=== PATIENT | female | born 1990 | race Caucasian/White ===

== ENCOUNTER 2016-11-22 13:13 | Emergency (ER) | payer BC, OTHER ==
[~2016-11-22] VITALS: Ht 157.5 cm; Wt 98.9 kg
[~2016-11-22 13:13] MED LIST: NORGTAB36 PO; SERT-234 PO
[2016-11-22 13:22] VITALS: Ht 157.5 cm; Wt 98.9 kg
[2016-11-22] MEDS ORDERED: HYDR25CA PO (13:58)
--- NOTE | 2016-11-22 14:10 | EMERGENCY ROOM VISIT NOTE ---
ED Visit Note First contact with patient: 13:30 26-year-old female with a rash was fully evaluated by Jackson Valladares PA-C. Please see his note. I also independently evaluated the patient. Blood work was obtained. Strep test was negative.
[2016-11-22 15:56] VITALS: TEMP 37
[2016-11-22 16:02] LABS: BASO % 0.4 %; BASO ABS # 0.05 K/uL (0-0.2); COMPLETE YES; EOS % 2.9 %; HEMATOCRIT 41.5 % (37-47); IG% 0.4 %; LYMPH % 27.6 %; LYMPH ABS # 3.24 K/uL (1.2-3.4); MEAN CELL VOLUME 83.7 fL (80-100); MEAN CORPUSCULAR HEMOGLOBIN 27.8 pg (25-34); MEAN CORPUSCULAR HGB CONC 33.3 g/dl (32-36); MEAN PLATELET VOLUME 9.1 fL (7.4-10.4); MONO % 6.2 %; NEUT % 62.5 %; PLATELET COUNT 282 K/uL (130-400); RED BLOOD COUNT 4.96 M/uL (4.2-5.4); WHITE BLOOD COUNT 11.74 K/uL (4.8-10.8)
[2016-11-22 16:28] LABS: ALT/SGPT 19 U/L (12-78); AST/SGOT 13 U/L (15-37); BLOOD UREA NITROGEN 12 mg/dl (7-18); BUN/CREATININE RATIO 15.3 (10-20); CALCIUM 9.1 mg/dl (8.5-10.1); CARBON DIOXIDE 25 mmol/L (21-32); CHLORIDE 107 mmol/L (98-107); CREATININE 0.76 mg/dl (0.60-1.20); GLUCOSE 80 mg/dl (70-99); POTASSIUM 3.6 mmol/L (3.5-5.1); SODIUM 139 mmol/L (136-145)
[2016-11-22 16:30] LABS: ALKALINE PHOSPHATASE 86 U/L (45-117); C-REACTIVE PROTEIN 2.35 mg/dl (0-0.29)
[2016-11-22 16:48] VITALS: BP 105/92; PULSE 84; O2SAT 98
--- NOTE | 2016-11-22 16:51 | EMERGENCY ROOM VISIT NOTE ---
History First contact with patient: 13:30 Chief Complaint: SORETHROAT Stated Complaint: SORE THROAT, TROUBLE SWALLOWING, RASH History of Present Illness The patient is a 26 year old female who presents to the Emergency Room with complaints of sore throat, difficulty swallowing and a rash mostly on her upper arms, abdomen, pubic region and bilateral hands/feet. The patient reports that she developed a sore throat/irritation approximately 2 days ago. Shortly thereafter, her rash developed. The patient denies any significant pruritus. She has had no fevers or chills, runny nose, congestion or cough. The patient denies using any new topical products, including soaps, lotions or detergents. She denies any vaginal drainage, backache, headache, nausea or vomiting. She denies any known sick contacts. She denies any pain. Review of Systems HEENT: Denies dizziness, visual problems, hearing loss, tinnitus. Denies difficulty swallowing or oral lesions. PULMONARY: Denies cough, shortness of breath, sputum production or hemoptysis. CARDIOVASCULAR: Denies chest pain, palpitations, dyspnea on exertion, orthopnea or peripheral edema. GASTROINTESTINAL: Denies diarrhea, constipation, nausea, vomiting, or abdominal pain. GENITOURINARY: Denies dysuria, frequency, urgency or nocturia. NEUROLOGIC: Denies history of epilepsy, CVA, TIA or chronic headaches. MUSCULOSKELETAL: Denies history of joint tenderness/swelling. SKIN: Denies rashes or lesions. PSYCHIATRIC: History of mental illness. ENDOCRINE: Denies history of diabetes or thyroid disorders. Past Medical/Surgical History Medical Problems: (1) Anxiety (2) Depression (3) Syncope (4) Vasovagal syncope (5) Viral gastroenteritis Surgical Problems: (1) No pertinent past surgical history Family History Anxiety disorder Depression FH: bipolar disorder FH: cancer FH: diabetes mellitus FH: heart disease FH: hypertension FH: obesity FH: seizures FH: thyroid disease Social History Smoking Status: Never Smoker Drug Use: none Marital Status: single Housing Status: lives with family Occupation Status: employed Current/Historical Medications Scheduled Hydroxyzine Pamoate (Vistaril), 1 CAP PO HS Norgestimate-Ethinyl Estradiol (Ortho Tri-Cyclen), 1 TAB PO DAILY Sertraline (Zoloft), 200 MG PO DAILY Physical Exam Vital Signs Date Time Temp Pulse Resp B/P (MAP) Pulse Ox O2 Delivery O2 Flow Rate FiO2 8/1/17 15:56 37.0 88 18 143/84 97 Room Air 11/22/16 13:22 37.0 88 18 129/95 98 Room Air 11/22/16 13:22 98 Room Air Physical Exam CONSTITUTIONAL: Obese female, alert and oriented X 3 with positive affect. Patient does not appear in any acute distress, nor does she appear acutely or toxic. HEENT: Normocephalic, atraumatic. Pupils equal, round and reactive. No facial edema, rash, rhinorrhea, TM bulging, scleral icterus or conjunctival injection/pallor. OROPHARYNX: The patient has tonsillar hypertrophy, left worse than right with no uvular deviation. Negative trismus. There are no additional vesicular lesions or ulcerations on the buccal mucosa, tongue or gingiva. NECK: Full active range of motion without discomfort. No nuchal rigidity. LYMPHATICS: No cervical chain adenopathy appreciated. RESPIRATORY: Clear to auscultation bilaterally with no wheezing, crackles, rhonchi or stridor. CARDIOVASCULAR: Regular rate and rhythm with no murmurs, rubs or gallops. GASTROINTESTINAL: Bowel sounds present in all quadrants. Abdomen is soft and nontender to palpation. MUSCULOSKELETAL: Full range of motion of all joints without discomfort. Bogginess to palpation, erythema or increased warmth to palpation of the major joints. INTEGUMENTARY: Examination shows an erythematous and confluent rash on the posterior upper arms bilaterally, on bilateral palms and soles, inner thighs and abdomen. No vesicles, pustules, desquamation or bullae appreciated. The rash does kg with pressure. No additional petechiae or ecchymosis noted. NEUROLOGIC: No focal neurologic deficits noted. Medical Decision & Procedures Laboratory Results 11/22/16 15:35 Red Blood Count 4.96, Mean Corpuscular Volume 83.7, Mean Corpuscular Hemoglobin 27.8, Mean Corpuscular Hemoglobin Concent 33.3, Mean Platelet Volume 9.1, Neutrophils (%) (Auto) 62.5, Lymphocytes (%) (Auto) 27.6, Monocytes (%) (Auto) 6.2, Eosinophils (%) (Auto) 2.9, Basophils (%) (Auto) 0.4, Neutrophils # (Auto) 7.33, Lymphocytes # (Auto) 3.24, Monocytes # (Auto) 0.73, Eosinophils # (Auto) 0.34, Basophils # (Auto) 0.05 11/22/16 15:35 Test 11/22/16 15:35 White Blood Count 11.74 K/uL (4.8-10.8) Red Blood Count 4.96 M/uL (4.2-5.4) Hemoglobin 13.8 g/dL (12.0-16.0) Hematocrit 41.5 % (37-47) Mean Corpuscular Volume 83.7 fL (80-100) Mean Corpuscular Hemoglobin 27.8 pg (25-34) Mean Corpuscular Hemoglobin Concent 33.3 g/dl (32-36) Platelet Count 282 K/uL (130-400) Mean Platelet Volume 9.1 fL (7.4-10.4) Neutrophils (%) (Auto) 62.5 % Lymphocytes (%) (Auto) 27.6 % Monocytes (%) (Auto) 6.2 % Eosinophils (%) (Auto) 2.9 % Basophils (%) (Auto) 0.4 % Neutrophils # (Auto) 7.33 K/uL (1.4-6.5) Lymphocytes # (Auto) 3.24 K/uL (1.2-3.4) Monocytes # (Auto) 0.73 K/uL (0.11-0.59) Eosinophils # (Auto) 0.34 K/uL (0-0.5) Basophils # (Auto) 0.05 K/uL (0-0.2) RDW Standard Deviation 40.0 fL (36.4-46.3) RDW Coefficient of Variation 13.3 % (11.5-14.5) Immature Granulocyte % (Auto) 0.4 % Immature Granulocyte # (Auto) 0.05 K/uL (0.00-0.02) Anion Gap 7.0 mmol/L (3-11) Est Creatinine Clear Calc Drug Dose 125.5 ml/min Estimated GFR () 127.2 Estimated GFR (Non- 109.8 BUN/Creatinine Ratio 15.3 (10-20) Calcium Level 9.1 mg/dl (8.5-10.1) Total Bilirubin 0.3 mg/dl (0.2-1) Direct Bilirubin < 0.1 mg/dl (0-0.2) Aspartate Amino Transf (AST/SGOT) 13 U/L (15-37) Alanine Aminotransferase (ALT/SGPT) 19 U/L (12-78) Alkaline Phosphatase 86 U/L (45-117) C-Reactive Protein 2.35 mg/dl (0-0.29) Total Protein 7.8 gm/dl (6.4-8.2) Albumin 3.3 gm/dl (3.4-5.0) The above labs were reviewed. Rapid strep was performed and was negative. Strep cultures are pending. Review of remaining labs shows a mild leukocytosis with elevated sedimentation rate and CRP. LFTs and electrolytes are normal. RPR and Lyme screen were pending at the time of patient discharge. ED Course Patient history and physical exam were performed. Nurse's notes were reviewed. Vital signs were reviewed and were normal. The patient is afebrile. Rapid strep was initially performed and was negative. Strep cultures are pending. Given the patient's atypical rash pattern and distribution, I did ask Dr. Serra, attending physician to also examine the patient. He agreed with additional laboratory workup, and the patient was also in agreement. IV access was established and labs were drawn. The patient refused any analgesics or antipruritics. Review of labs shows a mild leukocytosis with elevated CRP and sedimentation rate. LFTs and partial renal profile are normal. RPR and Lyme screen are negative. The mother was somewhat disappointed with delaying care as the patient was a very hard stick. IV team was consult and and was able to collect a straight stick lab collection. Initial review of labs shows a mild leukocytosis with sedimentation rate and CRP elevation. Remaining labs were normal. RPR and Lyme screen are currently pending. At this point, the patient was encouraged to follow-up with her PCP for further lab review, evaluation and management. Return to the emergency department for any progressively worsening tonsillar swelling, fever, rash or other significant changes. I did encourage her to take hydroxyzine as needed for antihistamine effect, and Zantac 150 mg every 12 hours for additional relief. The patient and parents were happy with plan of care, and voiced understanding of all discharge instructions. Medical Decision Patient presents to the emergency department with complaint of throat swelling and rash. The exact etiology of this rash is unknown ER the rash most consistent with a histamine reaction, however involvement of the palms and soles is atypical. The rash does not look like scarlatina. Rapid strep was also negative. The patient does not have a history over the consistent with syphilis. She has no recent contacts, nor does she have a vesicular lesions that would suggest [id number] disease. Contact dermatitis is another possibility, although the patient denies use of any new topical products. Blood Pressure Screening Patient's blood pressure: Normal blood pressure Impression Primary Impression: Rash and nonspecific skin eruption Additional Impression: Acute tonsillitis Departure Information Referrals No Doctor, Assigned (PCP) Patient Instructions [facility] Problem Qualifiers Additional Impression: Acute tonsillitis Pharyngitis/tonsillitis etiology: unspecified etiology Qualified Codes: J03.90 - Acute tonsillitis, unspecified
[2016-11-22 17:17] LABS: LYME DISEASE AB IGG NEG (NEG); LYME DISEASE AB IGM NEG (NEG)
[2016-11-22 23:17] LABS: RAPID PLASMA REAGIN NONREACTIVE (NONREACT)
== END 2016-11-22 16:50 | disposition home or self-care (01) ==
LOC: C.EDB 13:16 → C.EDD 16:50
DX: J03.90 Acute tonsillitis, unspecified (principal); R21 Rash and other nonspecific skin eruption; F41.9 Anxiety disorder, unspecified; F32.9 Major depressive disorder, single episode, unspecified; Z81.8 Family history of other mental and behavioral disorders; Z80.9 Family history of malignant neoplasm, unspecified; Z83.3 Family history of diabetes mellitus; Z82.49 Family history of ischemic heart disease and other diseases of the circulatory system; Z82.0 Family history of epilepsy and other diseases of the nervous system; Z83.49 Family history of other endocrine, nutritional and metabolic diseases; Z79.3 Long term (current) use of hormonal contraceptives; Z79.899 Other long term (current) drug therapy